=== PATIENT | female | born 1955 | race Caucasian/White ===

== ENCOUNTER 2018-10-31 08:25 | Inpatient (IN) | payer MEDICARE ==
[2018-10-23 16:41] LABS: BASOPHILS # (AUTO) 0.1 X10'3 (0-0.2); BASOPHILS % (AUTO) 0.6 % (0-1); EOSINOPHILS # (AUTO) 0.1 X10'3 (0-0.9); LYMPHOCYTES # (AUTO) 1.8 X10'3 (1.1-4.8); LYMPHOCYTES % (AUTO) 16.8 % (21-51); MEAN CORPUSCULAR HEMOGLOBIN 28.5 PG (27.0-31.0); MEAN CORPUSCULAR HGB CONC 33.4 g/dL (33.0-36.5); MEAN CORPUSCULAR VOLUME 85.5 FL (78-98); MEAN PLATELET VOLUME 7.5 FL (7.4-10.4); MONOCYTES # (AUTO) 0.5 X10'3 (0-0.9); NEUTROPHILS # (AUTO) 8.2 X10'3 (1.8-7.7); NEUTROPHILS % (AUTO) 76.6 % (42-75); PRE OP HEMATOCRIT 40.2 % (35.0-45.0); PRE OP HEMOGLOBIN 13.4 g/dL (12.0-16.0); PRE OP PLATELET COUNT 354 X10'3 (140-440); RED BLOOD COUNT 4.71 X10'6 (4.20-5.60); RED CELL DISTRIBUTION WIDTH 14.8 % (11.5-14.5)
[2018-10-23 16:51] LABS: ALBUMIN 3.7 G/DL (3.4-5.0); ALKALINE PHOSPHATASE 70 IU/L (46-116); BLOOD UREA NITROGEN 16 MG/DL (7-18); BUN/CREATININE RATIO 19.5 (6.6-38.0); CALCIUM 9.6 MG/DL (8.5-10.1); CHLORIDE 102 MMOL/L (99-107); CREATININE 0.82 MG/DL (0.40-0.90); PRE OP ALT 31 U/L (30-65); PRE OP AST 14 U/L (10-37); PRE OP BILIRUB, TOTAL 0.2 MG/DL (0.0-1.0); PRE OP GLUCOSE 102 MG/DL (70-104); PRE OP POTASSIUM 4.4 MMOL/L (3.4-5.1); TOTAL CARBON DIOXIDE 28.6 MMOL/L (24-32); TOTAL PROTEIN 7.3 G/DL (6.4-8.2); eGFR 70 ML/MIN
[2018-10-23 16:55] LABS: HEMOGLOBIN A1C 6.1 % (4.5-6.2); PRE OP ANION GAP 14 (8-16); PRE OP SODIUM 145 MMOL/L (135-145)
[2018-10-23 17:00] LABS: PRE OP INR 0.9 INR; PRE OP PROTIME 9.6 SECONDS (9.0-12.0)
[2018-10-23 17:27] LABS: C-REACTIVE PROTEIN 2.25 MG/DL (0.0-0.5)
[~2018-10-31] VITALS: Ht 162.6 cm; Wt 97.1 kg
[2018-10-31] VITALS (21 sets, daily range): BP systolic 85–139; BP diastolic 54–93
[~2018-10-31 08:25] MED LIST: ACET1TAB12 PO; ADV50250 IH; AMIT75TA2 PO; ASPI-1265 PO; BACL10TA PO; CETI10TA18 PO; DOCU-151 PO; DOCUMENT DATE & TIME OF BETA-BLOCKER PO ONE; DULA1.5P SQ; FLUT16SP2 BOTHNARES; HYDR2TAB28 PO; INSU100I31 SQ; METF500T20 PO; METO-292 PO; METO100T7 PO; MONT10TA21 PO; NAPR-1154 PO; OMEP20TA5 PO; PIOG15TA8 PO; PRED10TA PO; SIMV20TA5 PO; VENL-191 PO; WHEA1POW6 PO; ZOLP10TA5 PO; albuterol 2.5 MG/3 ML nebule NEB ONE; clindamycin-Cleocin 900mg/D5W 50 ML IV ONE; famotidine 20mg tablet PO ONE; hydrocortisone sod succ/PF 100mg/2ml inj. IV ONE; ringers solution, lacted 1,000 ML IV SCH; vancomycin inj 1,500 MG in normal saline 300ml IV soln IV ONE
[2018-10-31] MEDS ORDERED: ceFAZolin 1000mg inj ONE (09:02)
[2018-10-31] MEDS ORDERED: HYDROmorphone inj. 0.5 MG/0.5 ML DISP.SYRIN ONE (10:17)
[2018-10-31] MEDS ORDERED: sevoflurane 250ml liquid IH ONE (10:30)
[2018-10-31] MEDS ORDERED: midazolam 2 mg/2 ml injection ONE (10:38)
[2018-10-31] MEDS ORDERED: fentaNYL /PF 50mcg/ml 5ml ampule ONE (10:39)
[2018-10-31] MEDS ORDERED: propofol inj 20 ML IV ONE (12:47)
[2018-10-31] MEDS ORDERED: LIDOcaine 2% (20mg/ml) 5ml vial ONE (12:47)
[2018-10-31] MEDS ORDERED: neostigmine methylsulfate 1 MG/ML 10ml vial ONE (12:48)
[2018-10-31] MEDS ORDERED: rocuronium 10mg/ml inj IV ONE (12:48)
[2018-10-31] MEDS ORDERED: ondansetron/PF 4mg/2ml inj ONE (12:48)
[2018-10-31] MEDS ORDERED: glycopyrrolate 0.2mg/ml inj ONE (12:48)
[2018-10-31] MEDS ORDERED: fentaNYL/PF 50MCG/1 ML 2ML syringe ONE ×2 (13:07→13:32)
--- NOTE | 2018-10-31 13:27 | NUR ---
Received from OR via BED, accompanied by Anesthesiologist DR RODRIGUEZ and report given by Anesthesiologist. PT DROWSY, RESTLESS, LEFT HIP W/DRSG, WRAP, ICE PACK, JAMI DRAIN, WEDGE IN PLACE, MARSHALL CATHETER TO GRAVITY DRAINAGE W/YELLOW URINE IN TUBING. Addendum: 10/31/18 at 1439 by Noelle Ocampo RN Amended: Links added.
[2018-10-31] MEDS ORDERED: docusate sod 100mg capsule PO PRN (13:40)
[2018-10-31] MEDS ORDERED: dextrose 50%-water 50ml dispensing syringe IV PRN ×2 (13:45)
[2018-10-31] MEDS ORDERED: MESSAGE TO PHARMACY PO ONE (13:45)
[2018-10-31] MEDS ORDERED: diphenhydrAMINE 25mg capsule PO PRN ×2 (13:45)
[2018-10-31] MEDS ORDERED: glucagon, human recombinant 1mg kit SUBCUT PRN (13:45)
[2018-10-31] MEDS ORDERED: ondansetron/PF 4mg/2ml inj IV PRN ×2 (13:45→14:15)
[2018-10-31] MEDS ORDERED: magnesium hydroxide 30ml (MOM) UD suspension PO PRN (13:45)
[2018-10-31] MEDS ORDERED: dextrose ORAL solution 15 GM/59 ML bottle PO PRN ×2 (13:45)
[2018-10-31] MEDS ORDERED: bisacodyl 10mg suppository rectal RC PRN (13:45)
[2018-10-31 13:51] LABS: ISTAT ANION GAP 11 (8-12); ISTAT BUN 12 mg/dL (6-19); ISTAT CL 101 mmol/L (99-107); ISTAT CREATININE 0.6 mg/dL (0.6-1.1); ISTAT GLUCOSE 175 mg/dL (70-104); ISTAT HGB 8.8 g/dl (12.0-16.0); ISTAT Hct 26 %PCV (35-48); ISTAT IONIZED CALCIUM 1.13 mmol/L (1.03-1.32); ISTAT K 4.3 mmol/L (3.5-5.1); ISTAT NA 136 mmol/L (135-145); ISTAT TOTAL CO2 24 mmol/L (24-32); ISTAT eGFR > 90 ML/MIN
[2018-10-31] MEDS: albuterol 2.5 MG/3 ML nebule NEB SCH ×2 (14:00→20:00)
[2018-10-31] MEDS ORDERED: ringers solution, lacted 1,000 ML IV SCH (14:11)
[2018-10-31] MEDS: ketorolac trometh. 30mg/ml inj. IV SCH ×2 (14:13→20:12)
[2018-10-31] MEDS ORDERED: HYDROmorphone inj. 0.5 MG/0.5 ML DISP.SYRIN IV PRN ×2 (14:15)
[2018-10-31] MEDS ORDERED: fentaNYL/PF 50MCG/1 ML 2ML syringe IV PRN ×2 (14:15)
[2018-10-31] MEDS ORDERED: insulin regular, human 10 units/0.1 ml syringe IV ONE (14:20)
--- NOTE | 2018-10-31 15:27 | NUR ---
Report called to receiving nurse. Transferred PT, COMFORTABLE, IN STABLE CONDITION via BED, NO Jewel, RN AT BEDSIDE TO RECEIVE PT, BLL, CALL LIGHT GIVEN, SIDE RAILS UP X 2, PT ORIENTED TO ROOM AND SAFETY. Special Issues communicated to receiving nurse. YES. Addendum: 10/31/18 at 1546 by Noelle Ocampo RN Amended: Links added.
[2018-10-31] MEDS ORDERED: CLINDAmcin 900mg/NS 50ml IVPB 50 ML IV SCH (16:00)
[2018-10-31] MEDS: potassium Cl 20mEq in NS 1,000 ML IV SCH (16:22)
[2018-10-31] MEDS: baclofen 10mg tablet PO SCH ×2 (16:23→23:36)
[2018-10-31] MEDS: HYDROmorphone 2mg tablet PO PRN ×2 (16:25→20:36)
[2018-10-31] MEDS ORDERED: aspirin 325mg tablet PO SCH (17:30)
[2018-10-31] MEDS: aspirin 81mg tab.chew PO SCH (18:18)
--- NOTE | 2018-10-31 19:00 | NUR ---
Patient in room [facility] 4023. I have received report from Barbara BLACKMAN and had the opportunity to ask questions and assume patient care.
[2018-10-31] MEDS: HYDROmorphone 1 mg/ml syringe IV PRN (19:43)
[2018-10-31] MEDS ORDERED: vancomycin/NS 1 GM ADD-VANTAGE 250 ML IV SCH (20:00)
[2018-10-31] MEDS ORDERED: naproxen 500mg tablet PO SCH (20:00)
[2018-10-31] MEDS: budesonide 0.5mg/2ml UD nebule IH SCH (20:03)
[2018-10-31] MEDS: metoprolol succinate 25mg (24-HOUR) SR. Tablet PO SCH (20:13)
[2018-10-31] MEDS: venlafaxine 37.5mg tablet PO SCH (20:16)
[2018-10-31] MEDS: montelukast 10mg tablet PO SCH (20:16)
[2018-10-31] MEDS: cetirizine 10mg tablet PO SCH (20:16)
[2018-10-31] MEDS: sennosides 8.6mg tablet PO SCH (20:17)
[2018-10-31] MEDS: hydrocortisone sod succ/PF 100mg/2ml inj. IV SCH (20:18)
[2018-10-31] MEDS: insulin glargine (Lantus) pen - multi-dose SQ SCH (21:00)
[2018-10-31] MEDS: clindamycin-Cleocin 900mg/D5W 50 ML IV SCH (23:37)
[2018-11-01 02:00] VITALS: BP 110/55
[2018-11-01] MEDS: albuterol 2.5 MG/3 ML nebule NEB SCH ×4 (02:00→20:00)
[2018-11-01] MEDS: ketorolac trometh. 30mg/ml inj. IV SCH ×2 (02:07→07:55)
[2018-11-01] MEDS: HYDROmorphone 2mg tablet PO PRN ×4 (02:09→23:11)
[2018-11-01] MEDS: HYDROmorphone 1 mg/ml syringe IV PRN ×3 (04:34→21:32)
[2018-11-01] MEDS: potassium Cl 20mEq in NS 1,000 ML IV SCH ×3 (04:37→17:47)
[2018-11-01 05:24] LABS: BASOPHILS % (AUTO) 0.2 % (0-1); EOSINOPHILS % (AUTO) 0 % (0-6); HEMATOCRIT 23.6 % (35.0-45.0); HEMOGLOBIN 7.9 g/dl (12.0-16.0); LYMPHOCYTES # (AUTO) 1.6 X10'3 (1.1-4.8); LYMPHOCYTES % (AUTO) 18.5 % (21-51); MEAN CORPUSCULAR HEMOGLOBIN 28.7 PG (27.0-31.0); MEAN CORPUSCULAR HGB CONC 33.3 g/dL (33.0-36.5); MEAN CORPUSCULAR VOLUME 86.2 FL (78-98); MEAN PLATELET VOLUME 7.3 FL (7.4-10.4); MONOCYTES # (AUTO) 0.7 X10'3 (0-0.9); MONOCYTES % (AUTO) 7.5 % (2-12); NEUTROPHILS # (AUTO) 6.5 X10'3 (1.8-7.7); NEUTROPHILS % (AUTO) 73.8 % (42-75); PLATELET COUNT 257 X10'3 (140-440); RED BLOOD COUNT 2.74 X10'6 (4.20-5.60); RED CELL DISTRIBUTION WIDTH 13.9 % (11.5-14.5); WHITE BLOOD COUNT 8.8 X10'3 (4.5-11.0)
[2018-11-01 05:38] LABS: ALANINE AMINOTRANSFERASE 24 U/L (12-78); ALBUMIN 2.3 G/DL (3.4-5.0); ALBUMIN/GLOBULIN RATIO 0.9 (1.1-1.5); ALKALINE PHOSPHATASE 42 IU/L (46-116); ANION GAP 7 (8-16); ASPARTATE AMINO TRANSFERASE 16 U/L (10-37); BILIRUBIN,TOTAL 0.2 MG/DL (0.1-1.0); BLOOD UREA NITROGEN 12 MG/DL (7-18); BUN/CREATININE RATIO 16.7 (6.6-38.0); CALCIUM 7.9 MG/DL (8.5-10.1); CHLORIDE 106 MMOL/L (99-107); CREATININE 0.72 MG/DL (0.40-0.90); GLUCOSE 185 MG/DL (70-104); POTASSIUM 4.2 MMOL/L (3.5-5.1); SODIUM 138 MMOL/L (135-145); eGFR 82 ML/MIN
[2018-11-01 06:09] VITALS: BP 105/60
--- NOTE | 2018-11-01 06:49 | NUR ---
Problems reprioritized. Patient report given, questions answered & plan of care reviewed with Barbara BLACKMAN.
[2018-11-01] MEDS: budesonide 0.5mg/2ml UD nebule IH SCH ×2 (07:41→19:59)
[2018-11-01] MEDS: clindamycin-Cleocin 900mg/D5W 50 ML IV SCH (07:54)
[2018-11-01] MEDS: hydrocortisone sod succ/PF 100mg/2ml inj. IV SCH ×4 (07:54→23:26)
[2018-11-01] MEDS: venlafaxine 37.5mg tablet PO SCH ×3 (07:57→21:35)
[2018-11-01] MEDS: metoprolol succinate 25mg (24-HOUR) SR. Tablet PO SCH ×3 (07:57→21:36)
[2018-11-01] MEDS: baclofen 10mg tablet PO SCH ×3 (07:57→23:28)
[2018-11-01] MEDS: pantoprazole 40mg Tablet.DR PO SCH (07:57)
[2018-11-01] MEDS: aspirin 81mg tab.chew PO SCH ×2 (07:57→21:34)
[2018-11-01] MEDS: fluticasone nasal spray 16GM bottle NS SCH (08:00)
[2018-11-01] MEDS ORDERED: prednisone 10mg tablet PO SCH (08:00)
[2018-11-01] MEDS ORDERED: predniSONE 5mg tablet PO SCH (08:25)
[2018-11-01] MEDS: predniSONE 5mg tablet PO SCH (09:53)
[2018-11-01 10:00] VITALS: BP 151/61
[2018-11-01] MEDS: insulin Lispro (HumaLOG) vial - multi-dose SQ SCH ×3 (13:40→23:22)
[2018-11-01 14:00] VITALS: BP 104/53
--- NOTE | 2018-11-01 17:17 | NUR ---
Malnutrition consult, patient reports wt loss of 14-23 lbs and poor appetite. Pending documented PO intake. No edema, appears well nourished. She is s/p total arthroplasty of left hip on 10/31/18. Patient has increased protein needs r/t wound heal after surgery. RD saw pt at bedside, brought written high protein education handout with verbal review. Requesting ensure high protein BID. Reports losing 16 lbs in two weeks d/t being bedbound and having limited amount of people being able to come over and come cook for her. Has a good appetite now, ate 100% of lunch. Appears well nourished. Will continue to follow. Recommend: 1. continue carb controlled 2. ensure high protein BID, notified MD 3. wt per rx Addendum: 11/01/18 at [address] Amended: Links added.
[2018-11-01 18:00] VITALS: BP 94/68
--- NOTE | 2018-11-01 19:00 | NUR ---
Patient in room [facility] 4023. I have received report from Barbara BLACKMAN and had the opportunity to ask questions and assume patient care.
[2018-11-01] MEDS: sennosides 8.6mg tablet PO SCH (21:36)
[2018-11-01] MEDS: cetirizine 10mg tablet PO SCH (21:36)
[2018-11-01] MEDS: montelukast 10mg tablet PO SCH (21:36)
[2018-11-01 22:00] VITALS: BP 133/58
[2018-11-01] MEDS: naproxen 500mg tablet PO SCH (22:00)
[2018-11-01] MEDS: insulin glargine (Lantus) pen - multi-dose SQ SCH (23:23)
[2018-11-02] VITALS (8 sets, daily range): BP systolic 99–129; BP diastolic 41–91
[2018-11-02] MEDS: albuterol 2.5 MG/3 ML nebule NEB SCH ×4 (02:00→20:00)
[2018-11-02] MEDS: HYDROmorphone 2mg tablet PO PRN ×3 (05:35→21:31)
[2018-11-02 06:15] LABS: HEMOGLOBIN 7.2 g/dl (12.0-16.0); MEAN CORPUSCULAR HEMOGLOBIN 29.1 PG (27.0-31.0); MEAN CORPUSCULAR HGB CONC 33.8 g/dL (33.0-36.5); MEAN CORPUSCULAR VOLUME 86.1 FL (78-98); RED BLOOD COUNT 2.47 X10'6 (4.20-5.60); RED CELL DISTRIBUTION WIDTH 13.7 % (11.5-14.5); WHITE BLOOD COUNT 8.7 X10'3 (4.5-11.0)
[2018-11-02 06:16] LABS: BASOPHILS % (AUTO) 0.1 % (0-1); EOSINOPHILS % (AUTO) 0.1 % (0-6); LYMPHOCYTES # (AUTO) 1.2 X10'3 (1.1-4.8); LYMPHOCYTES % (AUTO) 13.2 % (21-51); MEAN PLATELET VOLUME 7.6 FL (7.4-10.4); MONOCYTES # (AUTO) 0.7 X10'3 (0-0.9); MONOCYTES % (AUTO) 7.7 % (2-12); NEUTROPHILS # (AUTO) 6.9 X10'3 (1.8-7.7); NEUTROPHILS % (AUTO) 78.9 % (42-75); PLATELET COUNT 209 X10'3 (140-440)
[2018-11-02] MEDS ORDERED: polyethylene glycol 3350 17gm powd pack PO PRN (06:20)
[2018-11-02 06:32] LABS: HEMATOCRIT 21.2 % (35.0-45.0)
[2018-11-02 06:36] LABS: ALANINE AMINOTRANSFERASE 26 U/L (12-78); ALBUMIN 2.3 G/DL (3.4-5.0); ALBUMIN/GLOBULIN RATIO 0.8 (1.1-1.5); ALKALINE PHOSPHATASE 46 IU/L (46-116); ANION GAP 7 (8-16); ASPARTATE AMINO TRANSFERASE 29 U/L (10-37); BILIRUBIN,TOTAL 0.2 MG/DL (0.1-1.0); BLOOD UREA NITROGEN 15 MG/DL (7-18); BUN/CREATININE RATIO 22.1 (6.6-38.0); CALCIUM 8.5 MG/DL (8.5-10.1); CHLORIDE 108 MMOL/L (99-107); CREATININE 0.68 MG/DL (0.40-0.90); GLUCOSE 246 MG/DL (70-104); SODIUM 140 MMOL/L (135-145); TOTAL CARBON DIOXIDE 24.8 MMOL/L (24-32); TOTAL PROTEIN 5.3 G/DL (6.4-8.2); eGFR 87 ML/MIN
[2018-11-02] MEDS: aspirin 81mg tab.chew PO SCH ×2 (08:00→21:25)
[2018-11-02] MEDS: metoprolol succinate 25mg (24-HOUR) SR. Tablet PO SCH ×3 (08:01→21:31)
[2018-11-02] MEDS: naproxen 500mg tablet PO SCH ×2 (08:01→17:56)
[2018-11-02] MEDS: pantoprazole 40mg Tablet.DR PO SCH (08:01)
[2018-11-02] MEDS: venlafaxine 37.5mg tablet PO SCH ×3 (08:01→21:30)
[2018-11-02] MEDS: fluticasone nasal spray 16GM bottle NS SCH (08:01)
[2018-11-02] MEDS: baclofen 10mg tablet PO SCH ×2 (08:01→17:56)
[2018-11-02] MEDS: potassium Cl 20mEq in NS 1,000 ML IV SCH (08:02)
[2018-11-02] MEDS: predniSONE 5mg tablet PO SCH (08:03)
[2018-11-02] MEDS: budesonide 0.5mg/2ml UD nebule IH SCH ×2 (08:28→19:58)
[2018-11-02] MEDS: insulin Lispro (HumaLOG) vial - multi-dose SQ SCH ×3 (09:50→21:24)
[2018-11-02] MEDS: NUT.TX.GLUC.INTOLER,LAC-FR,SOY (GLUCERNA) 237 ML PO SCH ×3 (09:56→18:00)
[2018-11-02] MEDS: HYDROmorphone 1 mg/ml syringe IV PRN (17:56)
--- NOTE | 2018-11-02 19:00 | NUR ---
Patient in room [facility] 4023. I have received report from Barbara BLACKMAN and had the opportunity to ask questions and assume patient care.
[2018-11-02] MEDS: sennosides 8.6mg tablet PO SCH (21:00)
[2018-11-02] MEDS: montelukast 10mg tablet PO SCH (21:30)
[2018-11-02] MEDS: cetirizine 10mg tablet PO SCH (21:31)
[2018-11-02] MEDS: insulin glargine (Lantus) pen - multi-dose SQ SCH (22:53)
[2018-11-03] MEDS: baclofen 10mg tablet PO SCH ×3 (00:03→16:24)
[2018-11-03] MEDS: Melatonin 3mg tablet PO SCH (00:03)
[2018-11-03] MEDS: HYDROmorphone 1 mg/ml syringe IV PRN ×2 (00:04→09:09)
[2018-11-03] MEDS: albuterol 2.5 MG/3 ML nebule NEB SCH ×4 (02:00→20:00)
[2018-11-03] MEDS: HYDROmorphone 2mg tablet PO PRN ×3 (05:42→21:25)
[2018-11-03 06:00] VITALS: BP 109/63
[2018-11-03 06:57] LABS: BASOPHILS % (AUTO) 0.3 % (0-1); EOSINOPHILS # (AUTO) 0.3 X10'3 (0-0.9); HEMATOCRIT 29.2 % (35.0-45.0); HEMOGLOBIN 9.8 g/dl (12.0-16.0); LYMPHOCYTES # (AUTO) 3.3 X10'3 (1.1-4.8); MEAN CORPUSCULAR HEMOGLOBIN 28.4 PG (27.0-31.0); MEAN CORPUSCULAR HGB CONC 33.5 g/dL (33.0-36.5); MEAN CORPUSCULAR VOLUME 84.7 FL (78-98); MEAN PLATELET VOLUME 7.2 FL (7.4-10.4); MONOCYTES # (AUTO) 0.8 X10'3 (0-0.9); MONOCYTES % (AUTO) 6.9 % (2-12); NEUTROPHILS # (AUTO) 6.5 X10'3 (1.8-7.7); NEUTROPHILS % (AUTO) 59.8 % (42-75); PLATELET COUNT 247 X10'3 (140-440); RED BLOOD COUNT 3.44 X10'6 (4.20-5.60); RED CELL DISTRIBUTION WIDTH 14.8 % (11.5-14.5); WHITE BLOOD COUNT 10.8 X10'3 (4.5-11.0)
[2018-11-03 07:08] LABS: ALANINE AMINOTRANSFERASE 33 U/L (12-78); ALBUMIN 2.3 G/DL (3.4-5.0); ALBUMIN/GLOBULIN RATIO 0.7 (1.1-1.5); ALKALINE PHOSPHATASE 44 IU/L (46-116); ANION GAP 8 (8-16); ASPARTATE AMINO TRANSFERASE 47 U/L (10-37); BILIRUBIN,TOTAL 0.4 MG/DL (0.1-1.0); BLOOD UREA NITROGEN 13 MG/DL (7-18); BUN/CREATININE RATIO 18.8 (6.6-38.0); CALCIUM 8.1 MG/DL (8.5-10.1); CHLORIDE 107 MMOL/L (99-107); CREATININE 0.69 MG/DL (0.40-0.90); GLUCOSE 148 MG/DL (70-104); POTASSIUM 3.6 MMOL/L (3.5-5.1); SODIUM 143 MMOL/L (135-145); TOTAL CARBON DIOXIDE 28.1 MMOL/L (24-32); TOTAL PROTEIN 5.7 G/DL (6.4-8.2); eGFR 86 ML/MIN
[2018-11-03] MEDS: fluticasone nasal spray 16GM bottle NS SCH (08:00)
[2018-11-03] MEDS: NUT.TX.GLUC.INTOLER,LAC-FR,SOY (GLUCERNA) 237 ML PO SCH ×3 (08:00→18:00)
[2018-11-03] MEDS: aspirin 81mg tab.chew PO SCH ×2 (09:02→21:23)
[2018-11-03] MEDS: pantoprazole 40mg Tablet.DR PO SCH (09:03)
[2018-11-03] MEDS: venlafaxine 37.5mg tablet PO SCH ×3 (09:03→21:21)
[2018-11-03] MEDS: predniSONE 5mg tablet PO SCH (09:03)
[2018-11-03] MEDS: naproxen 500mg tablet PO SCH ×2 (09:03→17:28)
[2018-11-03] MEDS: metoprolol succinate 25mg (24-HOUR) SR. Tablet PO SCH ×3 (09:04→21:23)
[2018-11-03] MEDS: budesonide 0.5mg/2ml UD nebule IH SCH ×2 (09:15→20:19)
[2018-11-03] MEDS: insulin Lispro (HumaLOG) vial - multi-dose SQ SCH ×3 (09:20→19:20)
[2018-11-03 10:00] VITALS: BP 117/54
[2018-11-03] MEDS: lactose-reduced food (Ensure High Protein) 237ml bottle PO SCH ×2 (12:30→18:30)
[2018-11-03 18:00] VITALS: BP 154/60
--- NOTE | 2018-11-03 18:42 | NUR ---
Problems reprioritized. Patient report given, questions answered & plan of care reviewed with YEHUDA Lopez.
[2018-11-03] MEDS: sennosides 8.6mg tablet PO SCH (19:00)
[2018-11-03] MEDS: insulin glargine (Lantus) pen - multi-dose SQ SCH (21:20)
[2018-11-03] MEDS: cetirizine 10mg tablet PO SCH (21:22)
[2018-11-03] MEDS: montelukast 10mg tablet PO SCH (21:24)
[2018-11-03 22:00] VITALS: BP 136/52
[2018-11-04] MEDS: baclofen 10mg tablet PO SCH ×2 (00:08→09:51)
[2018-11-04] MEDS: Melatonin 3mg tablet PO SCH (00:08)
[2018-11-04] MEDS: albuterol 2.5 MG/3 ML nebule NEB SCH ×2 (02:00→08:00)
[2018-11-04] MEDS: HYDROmorphone 2mg tablet PO PRN ×2 (04:43→13:13)
[2018-11-04 06:00] VITALS: BP 136/77
--- NOTE | 2018-11-04 06:23 | NUR ---
Problems reprioritized. Patient report given, questions answered & plan of care reviewed with YEHUDA PARKINSON.
[2018-11-04] MEDS: budesonide 0.5mg/2ml UD nebule IH SCH (08:00)
[2018-11-04] MEDS: NUT.TX.GLUC.INTOLER,LAC-FR,SOY (GLUCERNA) 237 ML PO SCH ×2 (08:00→13:04)
[2018-11-04] MEDS: aspirin 81mg tab.chew PO SCH (09:50)
[2018-11-04] MEDS: pantoprazole 40mg Tablet.DR PO SCH (09:51)
[2018-11-04] MEDS: venlafaxine 37.5mg tablet PO SCH ×2 (09:51→13:13)
[2018-11-04] MEDS: predniSONE 5mg tablet PO SCH (09:51)
[2018-11-04] MEDS: naproxen 500mg tablet PO SCH (09:52)
[2018-11-04] MEDS: metoprolol succinate 25mg (24-HOUR) SR. Tablet PO SCH ×2 (09:52→13:13)
[2018-11-04] MEDS: fluticasone nasal spray 16GM bottle NS SCH (09:59)
[2018-11-04 10:00] VITALS: BP 128/57
[2018-11-04] MEDS: insulin Lispro (HumaLOG) vial - multi-dose SQ SCH ×2 (10:03→13:33)
[2018-11-04] MEDS: lactose-reduced food (Ensure High Protein) 237ml bottle PO SCH (12:30)
--- NOTE | 2018-11-04 14:00 | NUR ---
Received discharge transfer orders for pt to transfer to [facility] at 1400. Called report to YEHUDA Mckeon at [facility] regarding pts hospital stay. Attempted to locate saline lock in RFA to discontinue prior to transfer to [facility]. Unable to find. Not in pts arm at this time. Located Saline Lock in pts recliner chair when she returned to bed at 1320. Belongings transferred with pt to [facility] at 1400.
== END 2018-11-04 14:00 | DRG 470 ==
LOC: PAS IN 08:25 → EDSTATUS 10:30 → ORTHO 4S 15:33
PROVIDERS: ADMIT Orthopaedic Surgery; ATTEND Orthopaedic Surgery
PROC: 0SRB06Z Replacement of Left Hip Joint with Oxidized Zirconium on Polyethylene Synthetic Substitute, Open Approach (ICD-10-PCS; principal; 2018-10-31 10:30)
PROC: 30233N1 Transfusion of Nonautologous Red Blood Cells into Peripheral Vein, Percutaneous Approach (ICD-10-PCS; 2018-11-02)
DX: M16.12 Unilateral primary osteoarthritis, left hip (principal); D62 Acute posthemorrhagic anemia; E27.40 Unspecified adrenocortical insufficiency; E11.9 Type 2 diabetes mellitus without complications; J44.9 Chronic obstructive pulmonary disease, unspecified; K21.9 Gastro-esophageal reflux disease without esophagitis; F32.9 Major depressive disorder, single episode, unspecified; M79.7 Fibromyalgia; Z99.3 Dependence on wheelchair; Z86.14 Personal history of Methicillin resistant Staphylococcus aureus infection; Z79.899 Other long term (current) drug therapy
CPT/HCPCS: 36415; 80047; 80053; 82948; 83036; 85025; 85610; 85651; 85730; 86140; 86885; 86900; 86901; 86920; 87081; 94640; 94760; 97110; 97116; 97162; 97530; A4618; A6402; A7000; C1758; C1776; G0378; J0690; J1170; J1720; J1815; J1885; J2001; J2250; J2405; J2704; J2710; J3010; J3370; J3480; J3490; J7030; J7120; J7512; J7626; P9016

== ENCOUNTER 2021-05-19 05:30 | Inpatient (IN) | payer MEDICARE ==
[2021-05-11 16:05] LABS: BASOPHILS % (AUTO) 0.4 % (0-1); EOSINOPHILS # (AUTO) 0.1 X10'3 (0-0.9); LYMPHOCYTES # (AUTO) 1.9 X10'3 (1.1-4.8); LYMPHOCYTES % (AUTO) 15.5 % (21-51); MEAN CORPUSCULAR HGB CONC 33.6 g/dL (33.0-36.5); MEAN CORPUSCULAR VOLUME 86.5 FL (78-98); MEAN PLATELET VOLUME 7.8 FL (7.4-10.4); MONOCYTES # (AUTO) 0.7 X10'3 (0-0.9); MONOCYTES % (AUTO) 6.2 % (2-12); NEUTROPHILS # (AUTO) 9.2 X10'3 (1.8-7.7); NEUTROPHILS % (AUTO) 76.9 % (42-75); PRE OP HEMATOCRIT 37.4 % (35.0-45.0); PRE OP HEMOGLOBIN 12.6 g/dL (12.0-16.0); PRE OP PLATELET COUNT 311 X10'3 (140-440); RED BLOOD COUNT 4.33 X10'6 (4.20-5.60); RED CELL DISTRIBUTION WIDTH 14.2 % (11.5-14.5)
[2021-05-11 16:19] LABS: PRE OP PROTIME 9.9 SECONDS (9.0-12.0)
[2021-05-11 16:24] LABS: HEMOGLOBIN A1C 6.7 % (4.5-6.2)
[2021-05-11 16:28] LABS: ALBUMIN/GLOBULIN RATIO 1.5 (1.1-1.5); ALKALINE PHOSPHATASE 89 IU/L (46-116); BLOOD UREA NITROGEN 17 MG/DL (7-18); BUN/CREATININE RATIO 24.3 (6.6-38.0); CALCIUM 9.2 MG/DL (8.5-10.1); CHLORIDE 101 MMOL/L (99-107); PRE OP ALT 38 U/L (30-65); PRE OP ANION GAP 12 (8-16); PRE OP AST 23 U/L (10-37); PRE OP BILIRUB, TOTAL 0.2 MG/DL (0.0-1.0); PRE OP GLUCOSE 144 MG/DL (70-104); PRE OP POTASSIUM 4.7 MMOL/L (3.4-5.1); PRE OP SODIUM 140 MMOL/L (135-145); TOTAL CARBON DIOXIDE 27.4 MMOL/L (24-32); TOTAL PROTEIN 6.6 G/DL (6.4-8.2); eGFR 84 ML/MIN
[2021-05-19] VITALS (20 sets, daily range): BP systolic 90–157; BP diastolic 52–97
[~2021-05-19] VITALS: Ht 162.6 cm; Wt 100.7 kg
[~2021-05-19 05:30] MED LIST changes: +ACET-1 PO; -ACET1TAB12 PO; -ASPI-1265 PO; +ASPI81TA52 PO; -CETI10TA18 PO; +CETI10TA19 PO; +CYCL5TAB PO; -INSU100I31 SQ; +IRON15TA3 PO; +LANTUS SQ; +MELA1TAB28 PO; +METF-1203 PO; +METF-436 PO; -METF500T20 PO; -METO-292 PO; +METO5TAB85 PO; -PIOG15TA8 PO; +PIOG30TA71 PO; -PRED10TA PO; +PRED5TAB49 PO; +SIMV10TA98 PO; -SIMV20TA5 PO; -WHEA1POW6 PO; +WHEA98PO PO; +ZOLP10TA PO; -ZOLP10TA5 PO; -albuterol 2.5 MG/3 ML nebule NEB ONE; -hydrocortisone sod succ/PF 100mg/2ml inj. IV ONE; -ringers solution, lacted 1,000 ML IV SCH; +tranexamic acid inj. 1,000 MG in 0.7% saline 100 ML PMX IV ONE; +vancomycin 1,500 MG in NS 300ml IV soln IV ONE; -vancomycin inj 1,500 MG in normal saline 300ml IV soln IV ONE
[2021-05-19] MEDS ORDERED: BUPIVAcaine 0.5% inj/PF 30 ML ONE (07:08)
[2021-05-19] MEDS ORDERED: BUPIVACAINE liposomal/PF 13.3 MG/ML vial IM ONE (07:09)
[2021-05-19] MEDS ORDERED: dexamethasone sod phosphate 4mg/ml inj. ONE (07:16)
[2021-05-19] MEDS ORDERED: propofol inj 20 ML IV ONE (07:16)
[2021-05-19] MEDS ORDERED: LIDOcaine 2% (20mg/ml) 5ml vial ONE (07:16)
[2021-05-19] MEDS ORDERED: succinylcholine 20mg/ml inj IV ONE (07:17)
[2021-05-19] MEDS ORDERED: fentaNYL /PF 50mcg/ml 5ml ampule ONE (07:19)
[2021-05-19] MEDS ORDERED: ondansetron/PF 4mg/2ml inj ONE (07:19)
[2021-05-19] MEDS ORDERED: midazolam 1 mg/ML 2ml injection ONE (07:19)
[2021-05-19] MEDS ORDERED: ringers solution, lacted 1,000 ML IV SCH ×2 (07:21→07:25)
[2021-05-19] MEDS ORDERED: morphine 4 MG/ML inj SYRINge IV PRN (07:25)
[2021-05-19] MEDS ORDERED: labetalol 20mg/4ml (5mg/ml) syringe IV PRN (07:25)
[2021-05-19] MEDS ORDERED: hydrALAZINE 20mg/ml inj. IV PRN (07:25)
[2021-05-19] MEDS ORDERED: morphine 2 MG/ML inj. syringe IV PRN (07:25)
[2021-05-19] MEDS ORDERED: HYDROmorphone/PF 0.2 MG/ML SYRINGE IV PRN ×2 (07:25)
[2021-05-19] MEDS ORDERED: ondansetron/PF 4mg/2ml inj IV PRN ×2 (07:25→11:05)
[2021-05-19] MEDS ORDERED: acetaminophen 1,000mg/100ml IV 100 ML IV ONE (08:05)
[2021-05-19] MEDS ORDERED: Thrombin (Bovine) 5,000 unit vial TP ONE (09:37)
[2021-05-19] MEDS ORDERED: vancomycin 1,000mg inj ONE (10:09)
--- NOTE | 2021-05-19 10:50 | NUR ---
PT ARRIVED TO RECOVERY VIA BED, ACCOMPANIED BY DR. FANG-REPORT GIVEN, VSS, PT WAKING UP, DENIES PAIN, ABLE TO MOVE FINGERS-SCALENE BLOCK PRESENT, +PULSES, +CSM TO RIGHT HAND/FINGERS, JAMI AND SLING PRESENT-CDI, SCDS ON, 20G PIV TO LEFT HAND-LR RUNNING AT 100ML/HR.
[2021-05-19] MEDS ORDERED: CYCLOBENZAPRINE HCL PO PRN (11:00)
[2021-05-19] MEDS ORDERED: DEXTROSE 15 GM of carb/4 tabs (each vial/BOTTLE has 4 tablets) PO PRN ×2 (11:05)
[2021-05-19] MEDS ORDERED: magnesium hydroxide 30ml (MOM) UD suspension PO PRN (11:05)
[2021-05-19] MEDS ORDERED: glucagon, human recombinant 1mg kit SUBCUT PRN (11:05)
[2021-05-19] MEDS ORDERED: dextrose 50%-water 50ml dispensing syringe IV PRN ×2 (11:05)
[2021-05-19] MEDS ORDERED: bisacodyl 10mg suppository rectal RC PRN (11:05)
[2021-05-19] MEDS ORDERED: acetaminophen 325mg tablet PO PRN (11:05)
[2021-05-19] MEDS ORDERED: diphenhydrAMINE 25mg capsule PO PRN ×2 (11:05)
[2021-05-19] MEDS ORDERED: MESSAGE TO PHARMACY PO ONE (11:05)
[2021-05-19] MEDS ORDERED: LOP12.5T PO (11:21)
--- NOTE | 2021-05-19 12:10 | NUR ---
PT AWAKE, DENIES PAIN, VSS, NO CHANGES IN DRSG, SCDS ON, RIGHT ARM IN SLING-FINGERS PINK/WARM, ABLE TO MOVE, REPORT CALLED TO MORGAN RN-ALL QUESTIONS ANSWERED, TAKEN WITH ALL BELONGINGS TO ROOM 355B, PRIMARY RN PRESENT TO RECEIVE PT, BED LOW AND LOCKED.
--- NOTE | 2021-05-19 12:11 | NUR ---
I have received report from YEHUDA Katz in recovery, and had the opportunity to ask questions and assume patient care.
--- NOTE | 2021-05-19 12:30 | NUR ---
Pt arrived to surgical floor via hospital bed and 1 bag of belongings. Post op VS started, call light within reach. Will continue to monitor.
[2021-05-19] MEDS: venlafaxine 37.5mg tablet PO SCH ×2 (13:00→20:18)
[2021-05-19] MEDS: albuterol 2.5 MG/3 ML nebule NEB SCH ×2 (14:27→21:20)
[2021-05-19] MEDS: potassium Cl 20mEq in NS 1,000 ML IV SCH ×2 (15:12→21:05)
[2021-05-19] MEDS: metoprolol tartrate 50mg tablet PO SCH ×2 (15:13→20:19)
[2021-05-19] MEDS: insulin Lispro (HumaLOG) vial - multi-dose SQ SCH ×2 (15:27→19:32)
[2021-05-19] MEDS: DEXTROSE 5% IV SCH ×2 (16:19→23:24)
[2021-05-19] MEDS: WATER IV SCH ×2 (16:19→23:24)
[2021-05-19] MEDS: CLINDAMYCIN PHOSPHATE IV SCH ×2 (16:19→23:24)
[2021-05-19] MEDS: baclofen 10mg tablet PO SCH ×2 (16:19→23:23)
--- NOTE | 2021-05-19 18:35 | NUR ---
Problems reprioritized. Patient report given, questions answered & plan of care reviewed with YEHUDA Arambula.
--- NOTE | 2021-05-19 18:49 | NUR ---
Patient in room [facility] 355. I have received report from YEHUDA Renee and had the opportunity to ask questions and assume patient care.
[2021-05-19] MEDS: aspirin 81mg, enteric-coated 1 TAB TABLET.DR PO SCH (19:59)
[2021-05-19] MEDS: HYDROmorphone 2mg tablet PO PRN (19:59)
[2021-05-19] MEDS ORDERED: VANCOMYCIN 1GM/200ML IVPB 200 ML IV SCH (20:00)
[2021-05-19] MEDS ORDERED: non-formulary drug (Fluticasone/Salmeterol* (Advair 250-50 Diskus*) 1 PUFF) IH SCH (20:00)
[2021-05-19] MEDS ORDERED: cetirizine 10mg tablet PO SCH (21:00)
[2021-05-19] MEDS ORDERED: montelukast 10mg tablet PO SCH (21:00)
[2021-05-19] MEDS ORDERED: insulin glargine (Lantus) pen - multi-dose SQ SCH (21:00)
[2021-05-19] MEDS ORDERED: sennosides 8.6mg tablet PO SCH (21:00)
[2021-05-19] MEDS: budesonide 0.5mg/2ml UD nebule IH SCH (21:11)
[2021-05-20 00:02] VITALS: BP 104/65
[2021-05-20] MEDS: HYDROmorphone 2mg tablet PO PRN ×3 (01:09→14:39)
[2021-05-20] MEDS: albuterol 2.5 MG/3 ML nebule NEB SCH ×2 (03:41→08:00)
[2021-05-20] MEDS: potassium Cl 20mEq in NS 1,000 ML IV SCH (05:37)
--- NOTE | 2021-05-20 06:12 | NUR ---
Patient in room [facility] 355. I have received report from YEHUDA Arambula and had the opportunity to ask questions and assume patient care.
--- NOTE | 2021-05-20 06:19 | NUR ---
Problems reprioritized. Patient report given, questions answered & plan of care reviewed with YEHUDA Renee.
[2021-05-20 06:32] LABS: BASOPHILS % (AUTO) 0.3 % (0-1); EOSINOPHILS % (AUTO) 0.1 % (0-6); HEMOGLOBIN 11.6 g/dl (12.0-16.0); LYMPHOCYTES % (AUTO) 21.4 % (21-51); MEAN CORPUSCULAR HEMOGLOBIN 28.4 PG (27.0-31.0); MEAN CORPUSCULAR HGB CONC 32.2 g/dL (33.0-36.5); MEAN CORPUSCULAR VOLUME 88.2 FL (78-98); MEAN PLATELET VOLUME 7.6 FL (7.4-10.4); MONOCYTES # (AUTO) 1.4 X10'3 (0-0.9); MONOCYTES % (AUTO) 10.1 % (2-12); NEUTROPHILS # (AUTO) 9.6 X10'3 (1.8-7.7); NEUTROPHILS % (AUTO) 68.1 % (42-75); PLATELET COUNT 276 X10'3 (140-440); RED BLOOD COUNT 4.09 X10'6 (4.20-5.60); WHITE BLOOD COUNT 14.1 X10'3 (4.5-11.0)
[2021-05-20 07:00] LABS: ALANINE AMINOTRANSFERASE 55 U/L (12-78); ALKALINE PHOSPHATASE 53 IU/L (46-116); ANION GAP 9 (8-16); ASPARTATE AMINO TRANSFERASE 130 U/L (10-37); BILIRUBIN,TOTAL 0.4 MG/DL (0.1-1.0); BLOOD UREA NITROGEN 18 MG/DL (7-18); BUN/CREATININE RATIO 22.5 (6.6-38.0); CALCIUM 8.4 MG/DL (8.5-10.1); CHLORIDE 105 MMOL/L (99-107); GLUCOSE 179 MG/DL (70-104); SODIUM 140 MMOL/L (135-145); TOTAL CARBON DIOXIDE 26.5 MMOL/L (24-32); eGFR 72 ML/MIN
[2021-05-20] MEDS: aspirin 81mg, enteric-coated 1 TAB TABLET.DR PO SCH ×2 (07:03→08:46)
[2021-05-20] MEDS: baclofen 10mg tablet PO SCH (07:03)
[2021-05-20] MEDS: CLINDAMYCIN PHOSPHATE IV SCH (07:04)
[2021-05-20] MEDS: WATER IV SCH (07:04)
[2021-05-20] MEDS: DEXTROSE 5% IV SCH (07:04)
[2021-05-20 08:00] VITALS: BP 163/78
[2021-05-20] MEDS ORDERED: predniSONE 5mg tablet PO SCH (08:00)
[2021-05-20] MEDS ORDERED: pantoprazole 40mg Tablet.DR PO SCH (08:00)
[2021-05-20] MEDS ORDERED: fluticasone nasal spray 16GM bottle NS SCH (08:00)
[2021-05-20] MEDS: budesonide 0.5mg/2ml UD nebule IH SCH (08:27)
[2021-05-20] MEDS: metoprolol tartrate 50mg tablet PO SCH ×2 (08:46→13:08)
[2021-05-20] MEDS: insulin Lispro (HumaLOG) vial - multi-dose SQ SCH ×2 (08:51→14:00)
[2021-05-20] MEDS: venlafaxine 37.5mg tablet PO SCH ×2 (09:55→13:08)
[2021-05-20 11:30] VITALS: BP 137/60
[2021-05-20] MEDS ORDERED: acetaminophen w/codeine (30MG) #3 tablet PO STA (12:31)
[2021-05-20] MEDS ORDERED: ketorolac trometh. 30mg/ml inj. IV ONE (12:35)
[2021-05-20 13:08] VITALS: BP_SYST 137
--- NOTE | 2021-05-20 15:15 | NUR ---
Pt discharged to home with all belongings, in private vehicle, accompanied by friend. Discharge instructions and medications reviewed, no new prescriptions ordered. Pt instructed to follow up with Dr Salazar on Sunday or Sunday, pt to call and schedule appointment. Education provided for TSA post-op care, with instructions to contact Dr Salazar's office and seek medical attention with any concerns or signs of infection. Pt also provided with instructions on caring for JAMI dressing. Pt states understanding and willingness to comply with all discharge instructions. IV DC'd, cannula intact. Pt escorted to front lobby via wheelchair by PCT.
== END 2021-05-20 15:28 | disposition home or self-care (01) | DRG 483 ==
LOC: PAS 05:30 → EDSTATUS 07:30 → SUR 3N 11:09
PROVIDERS: ADMIT Orthopaedic Surgery; ATTEND Orthopaedic Surgery
PROC: 3E0T3BZ Introduction of Anesthetic Agent into Peripheral Nerves and Plexi, Percutaneous Approach (ICD-10-PCS; 2021-05-19)
PROC: 3E0T33Z Introduction of Anti-inflammatory into Peripheral Nerves and Plexi, Percutaneous Approach (ICD-10-PCS; 2021-05-19)
PROC: 0RRJ0JZ Replacement of Right Shoulder Joint with Synthetic Substitute, Open Approach (ICD-10-PCS; principal; 2021-05-19 07:32)
DX: M19.011 Primary osteoarthritis, right shoulder (principal)
CPT/HCPCS: 36415; 80053; 82948; 83036; 85025; 85610; 85730; 86885; 86900; 86901; 86920; 87081; 93005; 94640; 94760; 97116; 97161; 97530; A4215; A4565; A4618; A6253; A7000; A9272; C1713; C1776; C9290; G0378; J0131; J0330; J1100; J1815; J1885; J2250; J2405; J2704; J3010; J3370; J3480; J3490; J7040; J7060; J7120; J7512; S0020; U0003; U0005